=== PATIENT | male | born 1965 | race Caucasian/White ===

== ENCOUNTER 2018-02-02 10:46 | Inpatient (IN) | payer OTHER ==
[2018-02-02] MEDS ORDERED: ceFAZolin 2 GM/DEXTROSE 100 ML IV ONE ×2 (10:54→11:00)
--- NOTE | 2018-02-02 11:03 | PDANEPAE ---
ANE Past Medical History - Cardiovascular History Hx Hypertension: No Hx Arrhythmias: No Hx Chest Pain: No Hx Coronary Artery / Peripheral Vascular Disease: No Hx CHF / Valvular Disease: No Hx Palpitations: No - Pulmonary History Hx COPD: No Hx Asthma/Reactive Airway Disease: No Hx Recent Upper Respiratory Infection: No Hx Oxygen in Use at Home: No Hx Sleep Apnea: No - Neurologic History Hx Cerebrovascular Accident: No Hx Seizures: No Hx Dementia: No - Endocrine History Hx Diabetes: No - Renal History Hx Renal Disorders: No - Liver History Hx Hepatic Disorders: No - Neurological & Psychiatric Hx Hx Neurological and Psychiatric Disorders: No - Cancer History Hx Cancer: No - Congenital Disorder History Hx Congenital Disorders: No - GI History Hx Gastrointestinal Disorders: Yes Gastrointestinal History Comment: viscus perforation 10/19/17. colostomy creation. sigmoid colectomy - Other Health History Other Health History: none - Chronic Pain History Chronic Pain: No - Surgical History Prior Surgeries: 10/19/17 sigmoid colectomy and colostomy creation with Johs. right RTC repair 2002 ANE Review of Systems Review of Systems: - Exercise capacity Exercise capacity: >=4 METS METS (RN): 4 METS ANE Patient History - Allergies Allergies/Adverse Reactions: No Known Allergies Allergy (Verified 01/19/18 10:31) - Home Medications Home medications: home medication list seen and reviewed Home Medications: NK [No Known Home Meds] 01/19/18 [Last Taken Unknown] - NPO status NPO Status: no food or drink >8 hours - Anes Hx Anes Hx: no prior problems - Smoking Hx Smoking Status: Never smoked - Family Anes Hx Family Hx Anesthesia Complications: none ANE Labs/Vital Signs - Vital Signs Height: 172.72 cm Weight: 56.699 kg ANE Physical Exam - Airway Neck exam: FROM Mallampati Score: Class 1 Mouth exam: normal dental/mouth exam - Pulmonary Pulmonary: clear to auscultation - Cardiovascular Cardiovascular: regular rate and rhythym - ASA Status ASA Status: I ANE Anesthesia Plan Anesthesia Plan: general endotracheal anesthesia
[2018-02-02] MEDS ORDERED: LIDOCAINE 1% 2 ML INJ ID PRN (11:05)
[2018-02-02] MEDS ORDERED: LR 1,000 ML IV ONE (11:05)
[2018-02-02] MEDS ORDERED: MIDAZOLAM 2 MG/2 ML VIAL IVP ONE (11:40)
[2018-02-02] MEDS ORDERED: fentaNYL 100 MCG/2 ML INJ ONE ×2 (11:45→15:39)
[2018-02-02] MEDS ORDERED: BUPIVACAINE 0.25% 10 ML SDV ONE (11:45)
[2018-02-02] MEDS ORDERED: PROPOFOL 200 MG/20 ML VIAL ONE (11:45)
[2018-02-02] MEDS ORDERED: LIDOCAINE 2% 100 MG/5 ML SYR ONE (11:46)
[2018-02-02] MEDS ORDERED: ROCURONIUM 100 MG/10 ML VIAL ONE (11:48)
[2018-02-02] MEDS ORDERED: DEXAMETHASONE 4 MG/ML VIAL ONE (11:49)
--- NOTE | 2018-02-02 12:09 | PDHPUP ---
History & Physical Update H&P update statement: This history and physical update is based on an assessment of the patient which was completed after admission or registration (within 24 hours), but prior to the surgery/procedure. H&P update: H&P reviewed & patient examined, no change in patient's condition since H&P completed
[2018-02-02] MEDS ORDERED: *PHM DO NOT USE-METRONIDAZOLE 5 MG/ML IV PED/NEWBORN SYR IV ONE (12:52)
[2018-02-02] MEDS ORDERED: HYDROmorphONE/DILAUDID 2 MG/ML INJ ONE (13:03)
[2018-02-02] MEDS ORDERED: ESMOLOL HCL 100 MG/10 ML VIAL IV ONE (13:06)
[2018-02-02] MEDS ORDERED: LABETALOL HCL 5 MG/ML 20 ML MDV ONE (13:13)
--- NOTE | 2018-02-02 13:40 | POSTANESTH ---
Post Anesthetic Evaluation Cardiovascular Status: Normal, Stable Respiratory Status: Normal, Stable Level of Consciousness/Mental Status: Can Participate in Eval Pain Control: Adequate, Prn Tx Ordered Nausea/Vomiting Control: Adequate, Prn Tx Ordered Complications Possibly Related to Anesthesia: None Noted
[2018-02-02] MEDS ORDERED: ONDANSETRON 4 MG/2 ML VIAL ONE (14:52)
[2018-02-02] MEDS ORDERED: KETOROLAC 30 MG/1 ML SDV ONE (14:52)
[2018-02-02] MEDS ORDERED: GLYCOPYRROLATE 0.2 MG/1 ML VIAL ONE ×2 (14:56)
[2018-02-02] MEDS ORDERED: NEOSTIGMINE METHYLSULFATE 5 MG/5 ML SYR ONE (14:57)
[2018-02-02] MEDS ORDERED: DIAZEPAM 5 MG/ML 1 ML SYR IVP PRN (14:58)
[2018-02-02] MEDS ORDERED: LR 500 ML IV PRN (14:58)
[2018-02-02] MEDS ORDERED: ACETAMINOPHEN 500 MG TAB PO PRN (14:58)
[2018-02-02] MEDS ORDERED: ONDANSETRON 4 MG/2 ML VIAL IVP PRN ×2 (14:58→15:27)
[2018-02-02] MEDS ORDERED: ALBUTEROL 3 ML DEYVIAL IH PRN (14:58)
[2018-02-02] MEDS ORDERED: LABETALOL HCL 20 MG/4 ML INJ IVP PRN (14:58)
[2018-02-02] MEDS ORDERED: METOCLOPRAMIDE 10 MG/2 ML VIAL IVP PRN (14:58)
[2018-02-02] MEDS ORDERED: MEPERIDINE 25 MG/0.5 ML AMP IVP PRN (14:58)
[2018-02-02] MEDS ORDERED: PROMETHAZINE HCL 25 MG/ML INJ IVP PRN (14:58)
[2018-02-02] MEDS ORDERED: HYDROmorphONE/DILAUDID 2 MG/ML INJ IVP PRN (14:58)
[2018-02-02] MEDS ORDERED: NALOXONE HCL 0.4 MG/ML INJ IVP PRN (14:58)
--- NOTE | 2018-02-02 15:27 | POSTOPPROG ---
Post Op Note Date of Operation: 02/02/18 Surgeon: Higinio Franklin (, FACS) Anesthesiologist: Berenice Chow MD Anesthesia: GET(General Endotracheal) Pre-op Diagnosis: end colostomy s/p Srikanth's procedure Procedure: lap takedown of colostomy with coloproctostomy, mobilizatin of splenic flex Findings: extensive adhesions, incidental LIH Inf/Abcess present in the surg proc area at time of surgery?: No EBL: 50-100 (50 ml) Complications: none Specimen(s): proximal sigmoid colon, proximal and distal margin "donuts" submitted for permanent section
[2018-02-02] MEDS: fentaNYL 100 MCG/2 ML INJ IVP PRN ×2 (15:41→16:05)
--- NOTE | 2018-02-02 16:54 | GOP ---
DATE OF OPERATION: 02/02/2018 SURGEON: Higinio Franklin MD, FACS CALL CENTER DISPATCHER: ADELE Pacheco ANESTHESIA: General endotracheal. ANESTHESIOLOGIST: Berenice Chow MD. PREOPERATIVE DIAGNOSIS: Diverticulitis, status post Srikanth procedure for perforation. POSTOPERATIVE DIAGNOSIS: Diverticulitis, status post Srikanth procedure for perforation. PROCEDURE PERFORMED: 1. Laparoscopic takedown of end-colostomy/partial colectomy with primary coloproctostomy. 2. Laparoscopic mobilization of splenic flexure. 3. Laparoscopic lysis of extensive intraabdominal adhesions. FINDINGS: Extensive intraabdominal adhesions between the omentum, small bowel, and anterior abdominal wall, as well as between the small bowel and the rectal stump in the pelvis. Incidental left inguinal hernia. No evidence of persistent significant diverticula in the remaining sigmoid colon. Primary coloproctostomy performed at the peritoneal reflection. ESTIMATED BLOOD LOSS: 50 mL. DESCRIPTION OF PROCEDURE: After informed consent was obtained, the patient was brought to the operating room and placed under general anesthesia. The abdomen and perineum were prepped and draped in usual fashion. A Estes catheter was placed. Patient was positioned in lithotomy, padding all pressure points. Before proceeding, a time-out and identification of the patient was performed. The safe and timely completion of the operation required the help of a skilled public relations assistant and Heather Kirkland PA-C was requested to attend. .25% Marcaine was infiltrated into each port incision site.The peritoneal cavity was entered directly below the umbilicus through the old midline incision , incising the fascia carefully until the peritoneal cavity was entered under direct visualization and a 12 mm port established. CO2 gas was used to establish a pneumoperitoneum to a pressure of 15 mmHg. A 30-degree 5 mm scope was introduced and the peritoneal cavity was visualized. Extensive adhesions between the small bowel and the anterior abdominal wall existed primarily below the umbilicus, but there were a few adhesions in the left upper quadrant as well. Additional 5 mm ports were placed in the right lower quadrant, right mid abdomen , as well as an additional 5 mm port above the umbilicus. This allowed introduction of atraumatic grasping forceps and the Harmonic scalpel was used to free up adhesions to the anterior abdominal wall. Several of the adhesions where small bowel was very close to the peritoneum were incised sharply. The table was positioned in Trendelenburg position allowing the small bowel to be mobilized from the pelvis. There was 1 loop of small bowel that was densely adherent to the rectal stump. This was taken down using sharp dissection. The adhesiolysis took over 30 minutes and I anticipate will contribute to some increase in post op ileus. After the adhesions were fully mobilized, the colostomy was inspected and noted to be intact. Mesentery was under mild tension. The splenic flexure was next mobilized from the colostomy cephalad to the splenic flexure. The peritoneum lateral to the colon was taken down. The colon was swept medially. There was some foreshortening of the mesentery and the inferior mesenteric artery had been previously divided with his sigmoid colectomy. The distal transverse colon was mobilized, as well as the splenic flexure, taking down the splenocolic ligaments and freeing up the omentum from the gastric border. The colostomy was then taken down for preparation for the anastomosis and this was performed by incising the skin circumferential to the colostomy and dissecting it down to the fascial edge. Cautery dissection was used to free it up from the fascial edge all the way through to the peritoneum and the bowel was brought through the incision. The distal end was divided with a curved Estrada scissors and removed from the field. Mesenteric vasculature was clamped, divided, and ligated with 3-0 Vicryl ligatures for hemostasis. The freshened end of the distal descending colon was then used to place in the EEA stapling anvil into the lumen and this was secured circumferentially with a 3-0 Prolene suture. A 33 mm instrument was selected. This was dropped back into the peritoneal cavity and the posterior sheath and peritoneum were closed with continuous running 2-0 Vicryl suture. The pneumoperitoneum was reestablished and a 33 mm stapling instrument was passed anally until it was appeared at the peritoneal reflection. The central post was advanced through the anterior wall of the rectum and attached to the anvil laparoscopically. The incision was then closed. The colon was inspected and noted to have no torsion or twisting. Instrument was fired, held in place for 2 minutes, opened and removed. The 2 intact donuts were submitted as permanent section, proximal and distal. The anastomosis appeared under mild tension and I elected to further mobilize the colon proximally and distally, incising the peritoneum circumferential to the rectum to take some of the tension off. Upon completion, the anastomosis was tested with air insufflated through the rectum and saline in the pelvis with no air leaks noted. The operative field appeared hemostatic. All irrigant was aspirated. No active bleeding was noted. The pneumoperitoneum was evacuated. A clean closure technique was then performed changing gowns, gloves, instruments, and re -draping the surgical field. The ostomy site for anterior fascia was closed with continuous running 0 PDS suture. 3-0 Vicryl suture was used for the subcutaneous tissues. The infraumbilical incision was closed at the fascia level with interrupted 0 Vicryl suture. All incisions were then closed with 4- 0 Monocryl suture in a subcuticular fashion with the exception of the colostomy site, which was closed with jennifer. Sterile dressings were applied. Topical Dermabond was placed to the port sites. The patient was extubated and returned to the recovery room in satisfactory condition. NEEDLE/SPONGE/INSTRUMENT COUNT: Correct. COMPLICATIONS: None. /[id number]/MODL MTDD
[2018-02-02] MEDS: LR 1,000 ML IV SCH (17:03)
[2018-02-02] MEDS: OXYCODONE/APAP 5/325 TAB PO PRN (18:44)
[2018-02-02] MEDS: ceFAZolin 2 GM/DEXTROSE 100 ML IV SCH (22:27)
[2018-02-03] MEDS: OXYCODONE/APAP 5/325 TAB PO PRN ×2 (02:12→17:53)
[2018-02-03] MEDS: ceFAZolin 2 GM/DEXTROSE 100 ML IV SCH (05:19)
[2018-02-03 05:31] LABS: PLATELET COUNT 206 10^3/uL (150-400)
[2018-02-03] MEDS ORDERED: KETOROLAC 30 MG/1 ML SDV IVP ONE (08:55)
[2018-02-03] MEDS ORDERED: KETOROLAC 30 MG/1 ML SDV IVP PRN (08:56)
--- NOTE | 2018-02-03 09:05 | SOAPPROG ---
SOAP Progress Note Assessment/Plan: Assessment:s/p coloproctostomy POD #1 moderate post op incisional pain and nausea bilateral inguinal hernias Plan: short course of IV Ketoralac slowly advance diet as ileus resolves po Ativan as needed for anxiety 02/03/18 09:03 02/03/18 09:06 Subjective: awake, moderate incisional pain and nausea passing flatus and some old blood (which was alarming to him) we reviewed the details of his surgery and I gave him 2 copies of the images taken intra-operatively Objective: Vital Signs Temp Pulse Resp BP Pulse Ox 36.8 C 71 20 120/80 93 02/03/18 07:50 02/03/18 07:50 02/03/18 07:50 02/03/18 07:50 02/03/18 07:50 Laboratory Results 02/03/18 04:53 02/03/18 04:53 02/02/18 02/03/18 02/04/18 05:59 05:59 05:59 Intake Total 1678 Output Total 30 Balance 1648 Physical Exam - Physical Exam General Appearance: moderate distress Respiratory: normal breath sounds, decreased breath sounds Cardiac/Chest: regular rate, rhythm Abdomen: soft, other (dressing dry/hypoactive bowel sounds) Male Genitalia: other (bilateral reducible inguinal hernia) ICD10 Worksheet Patient Problems: Problems Problem Status Onset Abdominal pain Acute Enteritis Acute Free intraperitoneal air Acute
[2018-02-03] MEDS: ENOXAPARIN 40 MG/0.4 ML SYR SC SCH (09:06)
[2018-02-03] MEDS: LORazepam 1 MG TAB PO PRN ×2 (09:18→17:52)
--- NOTE | 2018-02-03 09:52 | PDMN ---
Medical Necessity Medical necessity: MCG: bowel surgery colectomy partial with or without ostomy 3 days [facility] INPT only. OP: Lap takedown of end-colostomy/partial colectomy with primary coloproctostomy, mobilization of splenic flex, extensive intraabdominal adhesions. [id number] [place] [id number] DONE INPT 02/02/18
[2018-02-03] MEDS: LR 1,000 ML IV SCH (14:30)
[2018-02-03] MEDS: KETOROLAC 15 MG/1 ML SDV IVP PRN (14:30)
[2018-02-03] MEDS: PANTOPRAZOLE SODIUM 40 MG VIAL IVP SCH (18:12)
[2018-02-03] MEDS ORDERED: SIMETHICONE 80 MG TAB CHEW PO PRN (18:30)
--- NOTE | 2018-02-04 07:39 | SOAPPROG ---
SOAP Progress Note Assessment/Plan: Assessment: post op chest pain likely related to gastric overdistention on CXR, neg Troponin Plan: trial of Reglan, delay discharge for now ambulate 02/03/18 09:03 02/03/18 09:06 02/04/18 07:32 Objective: Vital Signs Temp Pulse Resp BP Pulse Ox 37.0 C 83 16 125/78 H 94 02/04/18 03:22 02/04/18 03:22 02/04/18 03:22 02/04/18 03:22 02/04/18 03:22 Laboratory Results 02/04/18 04:40 02/04/18 04:40 02/03/18 02/04/18 02/05/18 05:59 05:59 05:59 Intake Total 1678 600 Output Total 30 Balance 1648 600 Physical Exam - Physical Exam General Appearance: mild distress Respiratory: decreased breath sounds, pain on movement Cardiac/Chest: regular rate, rhythm Abdomen: soft, other (typanitic, mildly distented, sanguinous drainage ostomy site-dressing changed) Rectal: deferred Skin: warm/dry Neuro/Psych: normal mood/affect, oriented x 3 ICD10 Worksheet Patient Problems: Problems Problem Status Onset Abdominal pain Acute Enteritis Acute Free intraperitoneal air Acute
[2018-02-04] MEDS: PANTOPRAZOLE SODIUM 40 MG VIAL IVP SCH (08:04)
[2018-02-04] MEDS: KETOROLAC 15 MG/1 ML SDV IVP PRN (08:17)
--- NOTE | 2018-02-04 09:09 | CPEKG ---
Test Reason : OPEN Blood Pressure : / mmHG Vent. Rate : 065 BPM Atrial Rate : 065 BPM P-R Int : 149 ms QRS Dur : 088 ms QT Int : 393 ms P-R-T Axes : 070 066 027 degrees QTc Int : 409 ms Sinus rhythm Left ventricular hypertrophy ST elev, probable normal early repol pattern Left atrial abnormality Confirmed by Jona Brewster ([id number]) on 02/04/2018 9:08:48 AM Referred By: Confirmed By:Jona Brewster
[2018-02-04] MEDS: ENOXAPARIN 40 MG/0.4 ML SYR SC SCH (09:13)
[2018-02-04] MEDS: METOCLOPRAMIDE 10 MG/2 ML VIAL IVP SCH ×2 (12:37→18:28)
--- NOTE | 2018-02-04 15:05 | ASMTCMCOM ---
CM Note CM Note Notes: Case Management Chart Review for Discharge Support: Patient is 52 year old male, status post planned [place] Colostomy Takedown. CM discussed with RN, Perez, patient likely to discharge independent with no CM needs. CM to follow. D/C Plan: Independent. Date Signed: 02/04/2018 03:05 PM Electronically Signed By:Adrianna Correa
[2018-02-05] MEDS: METOCLOPRAMIDE 10 MG/2 ML VIAL IVP SCH ×2 (01:15→05:37)
[2018-02-05] MEDS ORDERED: IBUPROFEN 600 MG TAB PO PRN (07:47)
[2018-02-05 08:07] VITALS: BP 147/80
--- NOTE | 2018-02-05 08:19 | PDDCSUM ---
Discharge Summary Discharge Summary: #[id number] Discharge summary dictated S MD Noemi, FACS
[2018-02-05] MEDS: PANTOPRAZOLE SODIUM 40 MG VIAL IVP SCH (09:15)
--- NOTE | 2018-02-05 09:17 | GDS ---
DISCHARGE DIAGNOSES: 1. History of diverticulitis, status post Srikanth procedure. 2. Postoperative ileus. PROCEDURE PERFORMED: 02/02/2018, laparoscopic takedown of end-colostomy and primary coloproctostomy. HOSPITAL COURSE: For details of admission history and physical, please see dictated summary. Briefl y, the patient is a 52-year-old male who is approximately 2-1/2 months status post emergency sigmoid colectomy for perforated diverticulitis with peritonitis. The patient had a Srikanth's pouch and end -colostomy created at that time. He recovered uneventfully and was admitted for elective takedown of his colostomy. This was performed on the date of admission following the ERAS guidelines, having co mpleted a mechanical and antibiotic bowel preparation on the day prior to surgery. He received perio perative cefazolin and metronidazole and this was continued for 3 doses postoperatively. At the time of surgery, he had a stapled EEA anastomosis performed at the peritoneal reflection. Postoperatively, patient had a brief ileus and developed some chest pain on the day after his surgery with EKG and troponins being unremarkable for acute cardiac etiologies. Plain films revealed signif icant gastric distention. As his ileus resolved, his symptoms improved with simethicone. He took ve ry few narcotics after surgery and his pain was relieved most of the time with ketorolac, and prior t o discharge was switched to ibuprofen 600 mg 4 times daily p.r.n. He received DVT prophylaxis with S CDs intraoperatively and low-molecular weight heparin postoperatively, and this was discontinued at t paulo of discharge as the patient was quite ambulatory and had no prior history of DVT. The patient palomo d return of bowel function, was advanced to a low-fiber diet, which he will continue until his first postoperative visit next week for staple removal. DISCHARGE MEDICATIONS: Oxycodone 1 p.o. q.4 h. p.r.n. #14 no refills, lorazepam 1 mg p.o. q.4 h. p.r .n. anxiety. #7 no refills, ibuprofen 600 mg p.o. q.6 h. p.r.n. pain #30, simethicone 80 mg p.o. t.i .d. p.r.n. gas pains #30. FOLLOWUP: The patient will follow up in my office next week for staple removal. . /[id number]/MODL
[2018-02-05] MEDS: ENOXAPARIN 40 MG/0.4 ML SYR SC SCH (09:42)
== END 2018-02-05 11:58 | disposition home or self-care (01) | DRG 345 ==
LOC: F3E 10:46
PROVIDERS: ADMIT Surgery; ATTEND Surgery
PROC: 0DSM0ZZ Reposition Descending Colon, Open Approach (ICD-10-PCS; principal; 2018-02-02 12:15)
DX: Z43.3 Encounter for attention to colostomy (principal); K91.89 Other postprocedural complications and disorders of digestive system; R07.9 Chest pain, unspecified; K40.20 Bilateral inguinal hernia, without obstruction or gangrene, not specified as recurrent; Z23 Encounter for immunization
CPT/HCPCS: G0008; J0690; J1100; J1170; J1650; J1885; J2001; J2250; J2405; J2704; J2710; J3010